=== PATIENT | female | born 1965 | race Caucasian/White ===

== ENCOUNTER 2021-08-08 16:43 | Outpatient (CLI) | payer OTHER, SELFPAY ==
--- NOTE | 2021-08-08 17:12 | XRR_ITS ---
PROCEDURE INFORMATION: Exam: XR Right Foot Exam date and time: 08/08/2021 5:12 PM Age: 56 years old Clinical indication: Pain; Foot; Right; Additional info: RT foot pain x 1 month TECHNIQUE: Imaging protocol: XR Right foot. Views: 3 or more views. COMPARISON: No relevant prior studies available. FINDINGS: Bones/joints: Normal. Soft tissues: Normal. XR/XR foot RT min 3V* [id number] IMPRESSION: No acute findings.
== END 2021-08-08 16:44 | disposition home or self-care (01) ==
PROVIDERS: PCP Nurse Practitioner Family; Visit Provider Nurse Practitioner Family
DX: M79.671 Pain in right foot (principal)
CPT/HCPCS: 73630

== ENCOUNTER 2023-09-19 13:58 | Outpatient (CLI) | payer OTHER, SELFPAY ==
--- NOTE | 2023-09-19 14:08 | MR_ITS ---
WS: [id number] MRI RIGHT FOOT WITHOUT CONTRAST. COMPARISON: None Multiplanar, multisequence imaging is performed without contrast. No fracture or marrow edema. There is normal alignment at the tarsometatarsal junction. 3 bands of th e Lisfranc ligament appear normal. There is a cystic mass between the proximal fourth and fifth metatarsal diaphyses. Mass measures 0.9 x 0.4 cm. Masses within the dorsal aspect of the foot and associated with the extensor digitorum tend on slip. This may be a small ganglion. Mass also extends to abut the dorsal interosseous muscle. No b one erosion. No additional mass. There is no mass or residual neuroma in the intermetatarsal spaces. No bursitis. IMPRESSION: 1. No fractures or marrow edema. 2. No residual or Palacios's neuroma identified in the intertarsal spaces. 3. Cystic mass measures 0.9 x 0.4 cm between the proximal fourth and fifth metatarsal diaphyses. [place] sely associated with the extensor digitorum tendon slip in the dorsal interosseous muscle. Highly rosa picious for a ganglion.
== END 2023-09-19 13:59 | disposition home or self-care (01) ==
LOC: RAD 14:00
PROVIDERS: PCP Nurse Practitioner Family; Visit Provider Nurse Practitioner Family
DX: M79.671 Pain in right foot (principal); M79.672 Pain in left foot
CPT/HCPCS: 73718